=== PATIENT | female | born 1970 | race African-American/Black ===

== ENCOUNTER 2018-05-09 11:06 | Inpatient (IN) | payer BC ==
[~2018-05-09] VITALS: Ht 160 cm; Wt 78.5 kg
[2018-05-09] MEDS ORDERED: ALBUTEROL (0.083%) 2.5MG/3ML NEB HHN STA (11:11)
[2018-05-09] MEDS ORDERED: IPRATROPIUM BROMIDE (0.02%) 0.5MG/2.5ML NEB HHN STA (11:11)
[2018-05-09] MEDS ORDERED: METHYLPREDNISOLONE SOD SUCC 125 MG/2 ML VIAL IV STA (11:11)
[2018-05-09] MEDS ORDERED: MAGNESIUM 2 G PREMIX 50 ML IV STA (11:11)
[2018-05-09] MEDS ORDERED: MAGNESIUM 2 G PREMIX 50 ML IV ONE (11:20)
[2018-05-09] MEDS ORDERED: METHYLPREDNISOLONE SOD SUCC 125 MG/2 ML VIAL ONE (11:20)
[2018-05-09 11:35] LABS: BASOPHILS % 0.1 % (0.0-2.0); EOSINOPHILS % 1.1 % (0.0-5.0); HEMATOCRIT. 41.1 % (36.0-48.0); HEMOGLOBIN. 13.9 g/dL (12.0-16.0); LYMPHOCYTES % 18.2 % (20.0-50.0); MEAN CORPUSCULAR HEMOGLOBIN 32.1 pg (28.0-32.0); MEAN CORPUSCULAR VOLUME 94.9 fL (81.0-99.0); MEAN PLATELET VOLUME 8.3 fl (7.4-10.4); MONOCYTES % 10.2 % (2.0-8.0); NEUTROPHILS % 70.4 % (40.0-76.0); PLATELET 253 x1000/uL (130-400); RED BLOOD CELL COUNT 4.33 mill/uL (4.2-5.4); RED CELL DISTRIBUTION WIDTH 12.7 % (11.6-14.6)
[2018-05-09 11:38] LABS: CHLORIDE 109 mEq/L (98-107)
[2018-05-09 11:39] LABS: PROTHROMBIN TIME 10.5 sec (9.1-11.1)
[2018-05-09 11:39] LABS: BG BASE EXCESS -0.2 mmol/L (-2.0-2.0); BG BILEVEL POS AIRWAY PRESSURE 15/5; BG CARBOXYHEMOGLOBIN 0.4 % (0.5-1.5); BG DEOXYHEMOGLOBIN 1.2 % (0.0-5.0); BG HCO3 ACT 24.5 mmol/L (22.0-26.0); BG METHEMOGLOBIN 0.2 % (0.0-1.5); BG OXYGEN SATURATION 98.8 % (92.0-98.5); BG OXYHEMOGLOBIN 98.2 % (94.0-97.0); BG PCO2 40.4 mmHg (35.0-45.0); BG PH 7.401 (7.350-7.450); BG PO2 163.1 mmHg (75.0-100.0); BG SAMPLE SITE RIGHT RADIAL; BG TOTAL HEMOGLOBIN 14.1 g/dL (12.0-18.0); BG VENT MODE MASK - BIPAP; BG VENT RATE 14 set
[2018-05-09] MEDS ORDERED: POTASSIUM CHLORIDE INJ 40 MEQ in DEXT 5% WATER 250 ML IV ONE (12:00)
[2018-05-09 12:46] LABS: HCG SCREEN NEGATIVE
[2018-05-09] MEDS: DEXT 5%/0.45% NACL 1000ML 1,000 ML IV SCH (19:42)
[2018-05-09] MEDS ORDERED: ACETAMINOPHEN 650MG/20.3ML UDC GT PRN (19:45)
[2018-05-09] MEDS ORDERED: IPRATROPIUM/ALBUTEROL 0.5-3(2.5)MG/3ML NEB INH PRN (19:45)
[2018-05-09] MEDS ORDERED: DOCUSATE SODIUM 100MG CAPSULE PO PRN (19:45)
[2018-05-09] MEDS ORDERED: NA PHOS,M-B/NA PHOS,DI-BA ENEMA 118ML PR PRN (19:45)
[2018-05-09] MEDS ORDERED: ACETAMINOPHEN 650MG SUPP PR PRN (19:45)
[2018-05-09] MEDS ORDERED: CLONIDINE 0.1MG TABLET PO PRN (19:45)
[2018-05-09] MEDS ORDERED: MAGNESIUM/ALUMINUM HYDROXIDE/SIMETHICONE 30ML UDC PO PRN (19:45)
[2018-05-09] MEDS ORDERED: ACETAMINOPHEN 325MG TABLET PO PRN (19:45)
[2018-05-09] MEDS ORDERED: ONDANSETRON HCL 4MG/2ML INJ IV PRN (19:45)
[2018-05-09] MEDS ORDERED: DIPHENHYDRAMINE 50MG/ML VIAL IV PRN (19:45)
[2018-05-09] MEDS ORDERED: GUAIFENESIN 200MG/10ML SUGAR FREE UDC PO PRN (19:45)
[2018-05-09 20:00] VITALS: BP 123/100
[2018-05-09] MEDS ORDERED: METHYLPREDNISOLONE SOD SUCC 40 MG/ML VIAL IV NR (20:00)
[2018-05-09] MEDS ORDERED: POTASSIUM CHLORIDE 20MEQ TABLET SR PO NR (20:00)
[2018-05-09] MEDS ORDERED: ALBUTEROL (0.5%) 2.5MG/0.5ML NEB HHN PRN (20:00)
[2018-05-09] MEDS ORDERED: IPRATROPIUM/ALBUTEROL 0.5-3(2.5)MG/3ML NEB HHN SCH (20:00)
[2018-05-09 21:17] VITALS: BP 130/82
[2018-05-09] MEDS: SODIUM CHLORIDE 0.9% INJ 3ML FLUSH IVF SCH (21:56)
[2018-05-09 22:00] VITALS: BP 128/76
[2018-05-09 22:08] LABS: BG BILEVEL POS AIRWAY PRESSURE 15/5; BG CARBOXYHEMOGLOBIN 0.5 % (0.5-1.5); BG DEOXYHEMOGLOBIN 5.8 % (0.0-5.0); BG FRACTION INSPIRED OXYGEN 35; BG HCO3 ACT 23.8 mmol/L (22.0-26.0); BG METHEMOGLOBIN 0.3 % (0.0-1.5); BG OXYGEN SATURATION 94.2 % (92.0-98.5); BG OXYHEMOGLOBIN 93.4 % (94.0-97.0); BG PCO2 40.1 mmHg (35.0-45.0); BG PH 7.391 (7.350-7.450); BG PO2 73.7 mmHg (75.0-100.0); BG SAMPLE SITE RIGHT RADIAL; BG TOTAL HEMOGLOBIN 13.6 g/dL (12.0-18.0); BG VENT MODE MASK - BIPAP; BG VENT RATE 18 set
[2018-05-09] MEDS: ENOXAPARIN 40MG/0.4ML SYR SUBCUT SCH (22:10)
[2018-05-09] MEDS: AZITHROMYCIN 500 MG in DEXT 5% WATER 250 ML IV SCH (22:10)
[2018-05-09 22:59] LABS: CLARITY URINE CLEAR (CLEAR); COLOR URINE YELLOW (YELLOW); KETONES URINE TRACE (NEGATIVE); LEUKOCYTE ESTERASE URINE NEGATIVE (NEGATIVE); NITRITE URINE NEGATIVE (NEGATIVE); OCCULT BLOOD URINE NEGATIVE (NEGATIVE); PROTEIN URINE NEGATIVE (NEGATIVE); SPECIFIC GRAVITY URINE 1.025 (1.005-1.030); UROBILINOGEN URINE 0.2 E.U./dL (0.2-1.0)
[2018-05-09 23:10] LABS: *AMPHETAMINES SCREEN URINE NEGATIVE (NEGATIVE); *BARBITURATES SCREEN URINE NEGATIVE (NEGATIVE); *BENZODIAZEPINES SCREEN URINE NEGATIVE (NEGATIVE); *COCAINE SCREEN URINE NEGATIVE (NEGATIVE)
[2018-05-09 23:11] LABS: CANNABINOID URINE SCREEN NEGATIVE (NEGATIVE); METHADONE URINE SCREEN NEGATIVE (NEGATIVE); OPIATES URINE SCREEN NEGATIVE (NEGATIVE); PHENCYCLIDINE URINE SCREEN NEGATIVE (NEGATIVE)
[2018-05-09] MEDS: THEOPHYLLINE ANHYDROUS 80 MG/15 ML 120ML PO SCH (23:41)
[2018-05-10] VITALS (12 sets, daily range): BP systolic 104–145; BP diastolic 27–88
[2018-05-10] MEDS ORDERED: IPRATROPIUM/ALBUTEROL 0.5-3(2.5)MG/3ML NEB INH SCH
[2018-05-10 00:03] LABS: CREATINE KINASE 351 IU/L (26-192)
[2018-05-10 00:04] LABS: CREATINE KINASE MB FRACTION 10.6 ng/mL (0.5-3.6)
[2018-05-10] MEDS: ALBUTEROL (0.083%) 2.5MG/3ML NEB HHN SCH ×5 (01:00→20:03)
[2018-05-10] MEDS: METHYLPREDNISOLONE SOD SUCC 125 MG/2 ML VIAL IV SCH ×3 (06:00→17:00)
[2018-05-10] MEDS: SODIUM CHLORIDE 0.9% INJ 3ML FLUSH IVF SCH ×3 (06:06→22:13)
[2018-05-10] MEDS ORDERED: ALBUL MT (06:11)
[2018-05-10] MEDS ORDERED: BECL10.6 IH (06:11)
[2018-05-10 07:03] LABS: CHLORIDE 109 mEq/L (98-107)
[2018-05-10 07:13] LABS: BASOPHILS % 0.1 % (0.0-2.0); HEMATOCRIT. 38.5 % (36.0-48.0); HEMOGLOBIN. 12.9 g/dL (12.0-16.0); LYMPHOCYTES % 9.3 % (20.0-50.0); MEAN CORPUSCULAR HEMOGLOBIN 31.8 pg (28.0-32.0); MEAN CORPUSCULAR VOLUME 94.9 fL (81.0-99.0); MEAN PLATELET VOLUME 8.9 fl (7.4-10.4); MONOCYTES % 5.5 % (2.0-8.0); NEUTROPHILS % 85.1 % (40.0-76.0); PLATELET 254 x1000/uL (130-400); RED BLOOD CELL COUNT 4.05 mill/uL (4.2-5.4); RED CELL DISTRIBUTION WIDTH 12.9 % (11.6-14.6)
[2018-05-10 07:20] LABS: CREATINE KINASE 377 IU/L (26-192)
[2018-05-10 07:21] LABS: HDL CHOLESTEROL 68 mg/dL (40-59)
[2018-05-10 07:22] LABS: LDL CHOLESTEROL 87 mg/dL (5-100)
[2018-05-10 07:27] LABS: CREATINE KINASE MB FRACTION 11.3 ng/mL (0.5-3.6)
[2018-05-10] MEDS: THEOPHYLLINE ANHYDROUS 80 MG/15 ML 120ML PO SCH ×2 (08:00→21:37)
[2018-05-10] MEDS: DEXT 5%/0.45% NACL 1000ML 1,000 ML IV SCH (15:42)
[2018-05-10] MEDS: AZITHROMYCIN 500 MG in DEXT 5% WATER 250 ML IV SCH (21:22)
[2018-05-10] MEDS: ENOXAPARIN 40MG/0.4ML SYR SUBCUT SCH (21:23)
[2018-05-11] VITALS (12 sets, daily range): BP systolic 99–146; BP diastolic 74–91
[2018-05-11] MEDS: ALBUTEROL (0.083%) 2.5MG/3ML NEB HHN SCH ×6 (00:24→19:51)
[2018-05-11] MEDS: METHYLPREDNISOLONE SOD SUCC 125 MG/2 ML VIAL IV SCH ×2 (00:26→06:08)
[2018-05-11] MEDS: DEXT 5%/0.45% NACL 1000ML 1,000 ML IV SCH ×3 (02:14→21:10)
[2018-05-11] MEDS: SODIUM CHLORIDE 0.9% INJ 3ML FLUSH IVF SCH ×3 (06:08→21:08)
[2018-05-11] MEDS: THEOPHYLLINE ANHYDROUS 80 MG/15 ML 120ML PO SCH ×2 (08:32→21:08)
[2018-05-11] MEDS ORDERED: THEOL PO (11:12)
[2018-05-11] MEDS ORDERED: P50 MT (11:12)
[2018-05-11] MEDS ORDERED: AZIT500T5 PO (11:12)
[2018-05-11] MEDS: LORATADINE 10MG TABLET PO SCH (15:23)
[2018-05-11] MEDS ORDERED: MONTELUKAST SODIUM 10MG TABLET PO SCH (17:00)
[2018-05-11] MEDS: FAMOTIDINE 20MG/2ML VIAL IV SCH (17:07)
[2018-05-11] MEDS: METHYLPREDNISOLONE SOD SUCC 40 MG/ML VIAL IV SCH (17:14)
[2018-05-11] MEDS ORDERED: AZITHROMYCIN 500 MG TABLET PO SCH (21:00)
[2018-05-11] MEDS: ENOXAPARIN 40MG/0.4ML SYR SUBCUT SCH (21:09)
[2018-05-12] VITALS (7 sets, daily range): BP systolic 119–141; BP diastolic 73–88
[2018-05-12] MEDS: ALBUTEROL (0.083%) 2.5MG/3ML NEB HHN SCH ×4 (00:21→12:07)
[2018-05-12] MEDS: FAMOTIDINE 20MG/2ML VIAL IV SCH (05:44)
[2018-05-12] MEDS: SODIUM CHLORIDE 0.9% INJ 3ML FLUSH IVF SCH (05:45)
[2018-05-12] MEDS: METHYLPREDNISOLONE SOD SUCC 40 MG/ML VIAL IV SCH (08:07)
[2018-05-12] MEDS: THEOPHYLLINE ANHYDROUS 80 MG/15 ML 120ML PO SCH (08:07)
[2018-05-12] MEDS: LORATADINE 10MG TABLET PO SCH (08:07)
== END 2018-05-12 14:00 | disposition home or self-care (01) | DRG 189 ==
LOC: ER 11:06 → EDBEDREQ 14:08 → EDBEDREQSVC 14:08 → EDBEDREQTM 14:08 → EDBEDREQ 14:10 → OBSVTOIN 15:18 → 7WST 15:18 → EDBEDREQSVC 15:22 → EDBEDREQTM 15:22 → EDBEDREQ 15:22 → ENRESERV 17:20 → 3WST 21:06
PROVIDERS: ADMIT Family Medicine; ATTEND Family Medicine
PROC: 5A09357 Assistance with Respiratory Ventilation, Less than 24 Consecutive Hours, Continuous Positive Airway Pressure (ICD-10-PCS; principal; 2018-05-09)
PROC: 5A09357 Assistance with Respiratory Ventilation, Less than 24 Consecutive Hours, Continuous Positive Airway Pressure (ICD-10-PCS; 2018-05-10)
DX: J96.01 Acute respiratory failure with hypoxia (principal); J45.41 Moderate persistent asthma with (acute) exacerbation; E86.0 Dehydration; E87.6 Hypokalemia; J06.9 Acute upper respiratory infection, unspecified
CPT/HCPCS: 36415; 36600; 71045; 80061; 80305; 82375; 82550; 82553; 82805; 84484; 84703; 87804; 93005; 94640; 94660; 96365; 96375; 99291; J0456; J1650; J2920; J2930; J3475; J3480; J7040; J7050; J7060; J7611; J7620

== ENCOUNTER 2021-01-21 15:52 | Emergency (ER) | payer BC ==
[~2021-01-21] VITALS: Ht 157.5 cm; Wt 80.0 kg
[~2021-01-21 15:52] MED LIST: ALBUL MT; AZIT500T8 PO; BECL10.6 IH; P50 MT; THEOL PO
[2021-01-21] MEDS ORDERED: ALBUTEROL (0.083%) 2.5MG/3ML NEB HHN STA (15:55)
[2021-01-21] MEDS ORDERED: METHYLPREDNISOLONE SOD SUCC 125 MG/2 ML VIAL IV STA (15:55)
[2021-01-21] MEDS ORDERED: MAGNESIUM 2 G PREMIX 50 ML IV ONE (16:00)
[2021-01-21 16:19] LABS: BASOPHILS % 0.5 % (0.0-2.0); EOSINOPHILS % 2.9 % (0.0-5.0); HEMATOCRIT. 42.9 % (36.0-48.0); HEMOGLOBIN. 14.1 g/dL (12.0-16.0); LYMPHOCYTES % 48.2 % (20.0-50.0); MEAN CORPUSCULAR HEMOGLOBIN 31.8 pg (28.0-32.0); MEAN CORPUSCULAR VOLUME 96.5 fL (81.0-99.0); MEAN PLATELET VOLUME 7.8 fl (7.4-10.4); MONOCYTES % 7.8 % (2.0-8.0); NEUTROPHILS % 40.6 % (40.0-76.0); PLATELET 332 x1000/uL (130-400); RED BLOOD CELL COUNT 4.45 mill/uL (4.2-5.4); RED CELL DISTRIBUTION WIDTH 13.8 % (11.6-14.6)
[2021-01-21 16:24] LABS: CHLORIDE 113 mEq/L (98-107)
[2021-01-21 16:29] LABS: ETHANOL BLOOD < 10 mg/dL
[2021-01-21 16:32] LABS: BG BASE EXCESS -4.4 mmol/L (-2.0-2.0); BG CARBOXYHEMOGLOBIN 0.1 % (0.5-1.5); BG DEOXYHEMOGLOBIN 0.5 % (0.0-5.0); BG FRACTION INSPIRED OXYGEN 60; BG HCO3 ACT 21.2 mmol/L (22.0-26.0); BG METHEMOGLOBIN 0.3 % (0.0-1.5); BG OXYGEN SATURATION 99.5 % (92.0-98.5); BG OXYHEMOGLOBIN 99.1 % (94.0-97.0); BG PCO2 40.5 mmHg (35.0-45.0); BG PH 7.336 (7.350-7.450); BG PO2 417.8 mmHg (75.0-100.0); BG SAMPLE SITE RIGHT RADIAL; BG TOTAL HEMOGLOBIN 13.9 g/dL (12.0-18.0); BG VENT MODE MASK - BIPAP
[2021-01-21 16:33] LABS: HCG SCREEN NEGATIVE
[2021-01-21] MEDS ORDERED: IPRATROPIUM/ALBUTEROL 0.5-3(2.5)MG/3ML NEB NEB PRN (18:30)
[2021-01-21] MEDS ORDERED: ONDANSETRON HCL 4MG/2ML INJ IV PRN (18:30)
[2021-01-21] MEDS ORDERED: ZOLPIDEM TARTRATE 5MG TABLET PO PRN (18:30)
[2021-01-21] MEDS ORDERED: NITROGLYCERIN 0.4MG TABLET SL SL PRN (18:30)
[2021-01-21] MEDS ORDERED: DOCUSATE SODIUM 100MG CAPSULE PO PRN (18:30)
[2021-01-21] MEDS ORDERED: MAGNESIUM/ALUMINUM HYDROXIDE/SIMETHICONE 30ML UDC PO PRN (18:30)
[2021-01-21] MEDS ORDERED: KETOROLAC 15MG/ML VIAL IV PRN (18:30)
[2021-01-21] MEDS ORDERED: LORAZEPAM 0.5MG TABLET PO PRN (18:30)
[2021-01-21] MEDS ORDERED: GUAIFENESIN 200MG/10ML SUGAR FREE UDC PO PRN (18:30)
[2021-01-21] MEDS ORDERED: CLONIDINE 0.1MG TABLET PO PRN (18:30)
[2021-01-21] MEDS ORDERED: ACETAMINOPHEN 325MG TABLET PO PRN ×2 (18:30)
[2021-01-21] MEDS ORDERED: DILTIAZEM HCL 60MG TABLET PO SCH (18:45)
[2021-01-21] MEDS ORDERED: LEVOFLOXACIN 500MG PREMIX 100 ML IV SCH (19:00)
[2021-01-21] MEDS ORDERED: IPRATROPIUM/ALBUTEROL 0.5-3(2.5)MG/3ML NEB HHN SCH (20:00)
[2021-01-21 20:53] VITALS: BP 113/72
[2021-01-21] MEDS ORDERED: ENOXAPARIN 40MG/0.4ML SYR SUBCUT SCH (21:00)
[2021-01-21] MEDS ORDERED: ASCORBIC ACID 500 MG TABLET PO SCH (21:00)
[2021-01-21] MEDS ORDERED: FAMOTIDINE 20MG TABLET PO SCH (21:00)
[2021-01-21] MEDS ORDERED: METHYLPREDNISOLONE SOD SUCC 125 MG/2 ML VIAL IV SCH (22:00)
[2021-01-22] MEDS ORDERED: ASPIRIN 325MG EC TABLET PO SCH (09:00)
[2021-01-22] MEDS ORDERED: ZINC SULFATE 220 MG ( 50 ) CAPSULE PO SCH (09:00)
[2021-01-22] MEDS ORDERED: CHOLECALCIFEROL (D3) 1000 UNIT TABLET PO SCH (09:00)
== END 2021-01-21 20:54 | disposition left against medical advice (07) ==
LOC: ER 15:52 → CANRESERV 20:27 → ENRESERV 20:27 → SUPCPDRO 20:33 → ER 20:54 → CANBEDREQ 22:53
DX: R06.03 Acute respiratory distress (principal); J45.901 Unspecified asthma with (acute) exacerbation; F12.10 Cannabis abuse, uncomplicated; Z87.891 Personal history of nicotine dependence; Z20.822 Contact with and (suspected) exposure to COVID-19
CPT/HCPCS: 36415; 36600; 71045; 80053; 80061; 80320; 82375; 82805; 83036; 83880; 84484; 84703; 85025; 87426; 93005; 94640; 94660; 99291; J2930; J3475; Z7610; 94644; G0480